=== PATIENT | male | born 1965 | race Caucasian/White ===

== ENCOUNTER 2019-09-12 03:46 | Emergency (ER) | payer MEDICAID ==
[~2019-09-12] VITALS: Ht 172.7 cm; Wt 67.3 kg
[2019-09-12] MEDS ORDERED: EMTR1TAB12 PO (03:57)
[2019-09-12] MEDS ORDERED: BUPR150SR PO (03:57)
[2019-09-12 05:00] VITALS: BP 119/80
[2019-09-12] MEDS ORDERED: PROPARACAINE HCL 0.5% 15 ML OPHTHALMIC SOLUTION OU ONE (05:00)
[2019-09-12] MEDS ORDERED: ERYTHROMYCIN 0.5% 3.5 GM TUBE OPHTHALMIC OINTMENT OD ONE (05:00)
[2019-09-12] MEDS ORDERED: ACYC200C PO (07:32)
== END 2019-09-12 05:39 | disposition home or self-care (01) ==
LOC: EMS 03:46
DX: H57.89 Other specified disorders of eye and adnexa (principal); F32.9 Major depressive disorder, single episode, unspecified; Z87.891 Personal history of nicotine dependence

== ENCOUNTER 2019-09-12 07:29 | Emergency (ER) | payer MEDICAID ==
[~2019-09-12] VITALS: Ht 172.7 cm; Wt 67.3 kg
[~2019-09-12 07:29] MED LIST: BUPR150SR PO; EMTR1TAB12 PO
[2019-09-12] MEDS ORDERED: ACYC200C PO (07:32)
[2019-09-12] MEDS ORDERED: FLUORESCEIN SODIUM 1 MG STRIP OD ONE (08:15)
[2019-09-12] MEDS ORDERED: TETRACAINE HCL VISCOUS 0.5% 0.6 ML OPHTHALMIC SOLUTION OD ONE (08:15)
[2019-09-12] MEDS ORDERED: FLUORESCEIN SODIUM 1 MG STRIP ONE (08:16)
[2019-09-12] MEDS ORDERED: TRIFLURIDINE 1% OD ONE (09:15)
[2019-09-12] MEDS ORDERED: MINERAL OIL/PETROLATUM,WHITE PF 3.5 GM OPHTHALMIC OINTMENT OD ONE (09:15)
[2019-09-12 09:30] VITALS: BP 115/77
== END 2019-09-12 09:56 | disposition home or self-care (01) ==
LOC: EMS 07:29
DX: B00.52 Herpesviral keratitis (principal); F32.9 Major depressive disorder, single episode, unspecified; Z79.899 Other long term (current) drug therapy; Z87.891 Personal history of nicotine dependence

== ENCOUNTER 2020-03-08 19:11 | Emergency (ER) | payer MEDICAID ==
[~2020-03-08] VITALS: Ht 172.7 cm; Wt 69.1 kg
[~2020-03-08 19:11] MED LIST changes: +ACYC200C PO
[2020-03-08 20:33] VITALS: BP 118/74
== END 2020-03-08 21:06 | disposition home or self-care (01) ==
LOC: EMS 19:11
DX: Z03.818 Encounter for observation for suspected exposure to other biological agents ruled out (principal); R03.0 Elevated blood-pressure reading, without diagnosis of hypertension; F32.9 Major depressive disorder, single episode, unspecified; F12.90 Cannabis use, unspecified, uncomplicated; Z87.891 Personal history of nicotine dependence
CPT/HCPCS: 99283; U0003